=== PATIENT | female | born 1995 | race Caucasian/White ===

== ENCOUNTER 2021-10-11 14:49 | Emergency (ER) | payer BC ==
[~2021-10-11] VITALS: Ht 157.5 cm; Wt 65.8 kg
[2021-10-11 15:14] VITALS: BP 100/70
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
--- NOTE | 2021-10-11 15:34 | NUR ---
Patient discharged to home in stable condition. Written and verbal after care instructions given. Patient verbalizes understanding of instruction.
== END 2021-10-11 15:35 | disposition home or self-care (01) ==
LOC: ER 14:59
DX: S09.90XA Unspecified injury of head, initial encounter (principal); V49.49XA Driver injured in collision with other motor vehicles in traffic accident, initial encounter; Y93.89 Activity, other specified; Y92.89 Other specified places as the place of occurrence of the external cause; Y99.8 Other external cause status